=== PATIENT | male | born 2000 | race Two or more races ===

== ENCOUNTER 2025-08-29 14:06 | Inpatient (IN) ==
[2025-08-29] MEDS: ACETAMINOPHEN 500 MG TAB PO ONE (14:25)
[2025-08-29 15:07] LABS: Influenza A virus by PCR Negative (Neg); Influenza B virus by PCR Negative (Neg); SARS CoV2 RNA(COVID-19) Ceph NEGATIVE (Negative)
[2025-08-29] MEDS: ACETAMINOPHEN 500 MG TAB PO STA (15:08)
--- NOTE | 2025-08-29 15:34 | Emergency Department Note ---
History of Present Illness General Chief complaint: Fever Stated complaint: FEVER HEADACHE Time Seen by Provider: 08/29/25 14:16 Source: friends Mode of arrival: ambulatory Limitations: language barrier History of Present Illness Maximum Pain Intensity: 8 Patient is a 25-year-old male who presents today for 2 days of fever, chills, body aches, headache. Patient does have an automotive parts interpreter here with him at bedside. Symptoms started after he got back from [place]. No sick contacts on his trip. He is taking generic [id number] cold and flu medication. Last had a dose last night. Denies any neck stiffness, vision change, speech changes, confusion, chest pain, shortness of breath. He does report he is having some abdominal pain to the mid abdominal region. No nausea or vomiting. No change in bowel or bladder habits. No rash or tick bites. denies any other significant medical history. Home Medications Medication Instructions Recorded Confirmed Type acetaminophen 500 mg tablet 1,000 mg PO Q6H PRN Fever 08/29/25 08/29/25 History Past Med/Surg History Problem List (Updated 08/29/25 @ 18:35 by Harris Vera MD) Costovertebral (angle) tenderness, left side SIRS (systemic inflammatory response syndrome) Pyelonephritis (Acute) Social History Smoking Status: Never smoker Preferred Language: Upper Sorbian Feels Safe at Home: Yes Review of Systems Review of systems negative outside of positive findings mentioned in HPI. Physical Exam Vital Signs Vital Signs - 24 hr 08/29/25 14:10 08/29/25 15:35 08/29/25 17:19 Temperature 38 C H Temperature Source Oral Pulse Rate 123 H Pulse Rate [Right Finger] 106 H 91 H Respiratory Rate 16 17 17 Respiratory Effort / Characteristics Non-Labored Spontaneous Non-Labored Spontaneous Non-Labored Spontaneous Respiratory Depth Normal Normal Normal Respiratory Pattern Regular Regular Regular Blood Pressure 117/77 Blood Pressure [Left Arm] 102/66 110/64 Blood Pressure Mean 90 Blood Pressure Mean [Left Arm] 78 79 Pulse Oximetry 96 97 100 Oxygen Delivery Method Room Air Room Air Room Air Sepsis Recent Fever Within 48 Hours No Sepsis New/Unexplained Change in Mental Status N/A Sepsis Action Taken by Nursing No Action Required See below Constitutional WD/WN, vitals as above Eyes PERRL, conjunctivae normal, anicteric sclerae ENMT external ear and nose normal, oropharynx normal Neck no nuchal rigidity Respiratory normal respiratory effort, lungs clear to auscultation Cardiovascular Rate/Rhythm: + tachycardic Heart Sounds: normal S1 and normal S2 Gastrointestinal (Abdomen) normal bowel sounds, soft, nontender, no hepatosplenomegaly Musculoskeletal no cyanosis or clubbing, extremities motor strength 5/5 Skin no rashes, warm and dry Course Administered Medications Discontinued Medications Acetaminophen (Acetaminophen 500 Mg Tab) 1,000 mg PO ONCE ONE Stop: 08/29/25 14:16 Last Admin: 08/29/25 14:25 Dose: 1,000 mg Documented By: TOREY Acetaminophen (Acetaminophen 500 Mg Tab) 1,000 mg PO NOW STA Stop: 08/29/25 15:06 Last Admin: 08/29/25 15:08 Dose: Not Given Documented By: MELISA Sodium Chloride (Nss) 1,000 mls @ 999 mls/hr IV .Q1H1M ONE Stop: 08/29/25 16:13 Last Infusion: 08/29/25 16:54 Dose: Infused Documented By: Admin: 08/29/25 15:38 Dose: 999 mls/hr Documented By: MARK Ioversol (Optiray 320 125ml) 115 ml IV ONCE ONE Stop: 08/29/25 16:56 Last Admin: 08/29/25 16:55 Dose: 115 ml Documented By: GEOFF Ioversol (Optiray 320 100ml) 90 ml IV ONCE ONE Stop: 08/29/25 16:58 Last Admin: 08/29/25 16:58 Dose: 90 ml Documented By: GEOFF Ketorolac Tromethamine (Ketorolac Tromethamine 60 Mg/2 Ml Vial) 30 mg IM NOW STA Stop: 08/29/25 15:06 Last Admin: 08/29/25 15:41 Dose: Not Given Documented By: MARK Ketorolac Tromethamine (Ketorolac Tromethamine 15 Mg/Ml Vial) 15 mg IV NOW ONE Stop: 08/29/25 15:29 Last Admin: 08/29/25 15:38 Dose: 15 mg Documented By: MARK Medical Decision Making Differential Diagnosis DDx includes but not limited to: Viral syndrome, pneumonia, pyelonephritis, sepsis Medical Records Attestation: I reviewed the patient's medical records. Home Medications Current Medication List: was personally reviewed by me Laboratory Data Attestation: I reviewed the patient's lab results. 08/29/25 15:25 08/29/25 15:25 Lab Results 08/29/25 08/29/25 08/29/25 Range/Units 14:15 14:15 14:15 WBC (4.8-10.8) K/ul RBC (4.70-6.10) M/uL Hgb (14.0-18.0) g/dL Hct (42.0-52.0) % MCV (80.0-100.0) fL MCH (25.0-34.0) pg MCHC (32.0-36.0) g/dL RDW Std Deviation (36.4-46.3) fL RDW Coeff of Misa (11.5-14.5) % Plt Count (130-400) K/uL MPV (9.4-12.4) fL Immature Gran % (Auto) % Neut % (Auto) % Lymph % (Auto) % Alfalfa % (Auto) % Eos % (Auto) % Baso % (Auto) % Neut # (Auto) (1.40-6.50) K/uL Lymph # (Auto) (1.20-3.40) K/uL Alfalfa # (Auto) (0.11-0.59) K/uL Eos # (Auto) (0.00-0.50) K/uL Baso # (Auto) (0.00-0.20) K/uL Immature Gran # (Auto) (0.01-0.20) K/uL Sodium (136-145) mmol/L Potassium (3.5-5.1) mmol/L Chloride (98-107) mmol/L Carbon Dioxide (21-32) mmol/L Anion Gap (3-11) BUN (6-23) mg/dl Creatinine (0.6-1.4) mg/dl Est Cr Clr Drug Dosing ml/min eGFR BUN/Creatinine Ratio (10-20) Glucose (70-99(Fasting)) mg/dl Lactate (0.4-2.0) mmol/L Calcium (8.6-10.3) mg/dl Total Bilirubin (0.2-1.0) mg/dl AST (13-39) U/L ALT (7-52) U/L Alkaline Phosphatase (34-104) U/L Total Protein (6.0-8.3) gm/dl Albumin (3.4-5.0) gm/dl Globulin (2.5-4.0) gm/dl Albumin/Globulin Ratio (0.9-2) Lipase (11-82) U/L Adenovirus (PCR) Not Detected (NotDetected) B. pertussis DNA (PCR) Not Detected (NotDetected) B.parapertussis DNA PCR Not Detected (NotDetected) C. pneumoniae DNA (PCR) Not Detected (NotDetected) Coronavirus OC43 (PCR) Not Detected (NotDetected) Coronavirus HKU1 (PCR) Not Detected (NotDetected) Coronavirus 229E (PCR) Not Detected (NotDetected) SARS-CoV-2 (PCR) NEGATIVE Not Detected (Negative) Coronavirus NL63 (PCR) Not Detected (NotDetected) Human Metapneumovir PCR Not Detected (NotDetected) Influenza Type A (PCR) Negative Not Detected (Neg) Influenza Type B (PCR) Negative (Neg) M. pneumoniae (PCR) (NotDetected) Parainfluenza 1 (PCR) (NotDetected) Parainfluenza 2 (PCR) (NotDetected) Parainfluenza 3 (PCR) (NotDetected) Parainfluenza 4 (PCR) (NotDetected) RSV (RT-PCR) (Neg) RSV (PCR) (NotDetected) Entero/Rhino (PCR) (NotDetected) 08/29/25 08/29/25 08/29/25 Range/Units 14:15 15:25 18:22 WBC 16.39 H (4.8-10.8) K/ul RBC 5.53 (4.70-6.10) M/uL Hgb 14.0 (14.0-18.0) g/dL Hct 41.2 L (42.0-52.0) % MCV 74.5 L (80.0-100.0) fL MCH 25.3 (25.0-34.0) pg MCHC 34.0 (32.0-36.0) g/dL RDW Std Deviation 34.4 L (36.4-46.3) fL RDW Coeff of Misa 13.0 (11.5-14.5) % Plt Count 205 (130-400) K/uL MPV 9.7 (9.4-12.4) fL Immature Gran % (Auto) 0.4 % Neut % (Auto) 79.6 % Lymph % (Auto) 8.1 % Alfalfa % (Auto) 11.7 % Eos % (Auto) 0.1 % Baso % (Auto) 0.1 % Neut # (Auto) 13.07 H (1.40-6.50) K/uL Lymph # (Auto) 1.33 (1.20-3.40) K/uL Alfalfa # (Auto) 1.91 H (0.11-0.59) K/uL Eos # (Auto) 0.01 (0.00-0.50) K/uL Baso # (Auto) 0.01 (0.00-0.20) K/uL Immature Gran # (Auto) 0.06 (0.01-0.20) K/uL Sodium 130 L (136-145) mmol/L Potassium 4.1 (3.5-5.1) mmol/L Chloride 98 (98-107) mmol/L Carbon Dioxide 23 (21-32) mmol/L Anion Gap 9 (3-11) BUN 14 (6-23) mg/dl Creatinine 0.83 (0.6-1.4) mg/dl Est Cr Clr Drug Dosing 109.5 ml/min eGFR 124.56 BUN/Creatinine Ratio 16.9 (10-20) Glucose 112 H (70-99(Fasting)) mg/dl Lactate 0.8 (0.4-2.0) mmol/L Calcium 8.9 (8.6-10.3) mg/dl Total Bilirubin 1.2 H (0.2-1.0) mg/dl AST 15 (13-39) U/L ALT 19 (7-52) U/L Alkaline Phosphatase 59 (34-104) U/L Total Protein 7.4 (6.0-8.3) gm/dl Albumin 4.3 (3.4-5.0) gm/dl Globulin 3.1 (2.5-4.0) gm/dl Albumin/Globulin Ratio 1.4 (0.9-2) Lipase 8 L (11-82) U/L Adenovirus (PCR) (NotDetected) B. pertussis DNA (PCR) (NotDetected) B.parapertussis DNA PCR (NotDetected) C. pneumoniae DNA (PCR) (NotDetected) Coronavirus OC43 (PCR) (NotDetected) Coronavirus HKU1 (PCR) (NotDetected) Coronavirus 229E (PCR) (NotDetected) SARS-CoV-2 (PCR) (Negative) Coronavirus NL63 (PCR) (NotDetected) Human Metapneumovir PCR (NotDetected) Influenza Type A (PCR) (Neg) Influenza Type B (PCR) Not Detected (Neg) M. pneumoniae (PCR) Not Detected (NotDetected) Parainfluenza 1 (PCR) Not Detected (NotDetected) Parainfluenza 2 (PCR) Not Detected (NotDetected) Parainfluenza 3 (PCR) Not Detected (NotDetected) Parainfluenza 4 (PCR) Not Detected (NotDetected) RSV (RT-PCR) Negative (Neg) RSV (PCR) Not Detected (NotDetected) Entero/Rhino (PCR) Not Detected (NotDetected) Imaging Data Radiologist's Impression: Chest X-Ray 08/29/25 15:13 Chest radiograph, one view History: Fever Comparison: None Findings: Single AP view of the chest performed. No focal consolidation or pleural effusion. No pneumothorax. The cardiomediastinal silhouette is within normal limits. Normal pulmonary vascularity. No evidence for lymphadenopathy. No visualized bony or soft tissue abnormality. Impression: Normal chest radiograph Electronically signed by Johnny Esparza 08-29-2025 5:30 PM Abdomen/Pelvis CT 08/29/25 16:27 EXAMINATION: CT of the abdomen and pelvis performed after the administration of IV contrast TECHNIQUE: Helical CT images from the lung bases through the symphysis pubis were obtained with contrast. Coronal and sagittal reformatted images were generated at a workstation for further assessment. Dose reduction techniques were achieved by using automatic exposure control and/or adjustment of mA and/or kV according to patient size and/or use of iterative reconstruction technique. COMPARISON: None HISTORY: Abdominal pain FINDINGS: Lower chest: No consolidation. No pleural effusion or pneumothorax. Liver: No suspicious liver lesions. Portal veins appear patent. Gallbladder: No gallstones. No evidence of acute cholecystitis. Spleen: Normal size. Pancreas: No suspicious pancreatic lesions. The pancreatic duct is not dilated. Adrenal glands: No adrenal nodules. Kidneys: Wall thickening and mucosal hyperenhancement of the left ureter and renal collecting system. Striated left nephrogram. Left perinephric fat stranding. Right kidney appears within normal limits. Bladder / Pelvic organs: Mild diffuse wall thickening and mucosal hyperenhancement.. Bowel: No bowel obstruction. No abnormal bowel wall thickening. The appendix is unremarkable. Lymph nodes: No retroperitoneal, mesenteric, or pelvic lymphadenopathy. Peritoneum / Retroperitoneum: No free fluid or air within the abdomen. Vessels: No infrarenal aortic aneurysm. Bones and soft tissues: No suspicious lesion in the bones. Left fat-containing inguinal hernia. IMPRESSION: Findings of cystitis, as well as left ureteritis, and left pyelonephritis. No stones. Electronically signed by Johnny Esparza 08-29-2025 5:26 PM Blood Pressure Blood Pressure Findings: Normal blood pressure MDM Narrative Patient is a 25-year-old male who presents here today for fever, body aches and nonspecific abdominal pain. Febrile here on arrival at 38 Celsius. Tachycardic likely secondary to ongoing fever. Triage protocol orders were initiated including viral swabs and antipyretics. After my evaluation sepsis workup was initiated. Lab work shows a leukocytosis of 16,000. No evidence of endorgan damage or concern for severe sepsis or septic shock. Without a clear viral source to attribute his fever and leukocytosis to and the nonspecific abdominal pain I did order a CT scan. CT shows evidence of cystitis as well as left-sided ureteritis and pyelonephritis. IV ceftriaxone was ordered. Recommend admission due to persistent fever secondary to pyelonephritis as well as multiple social determinants of care. Impression & Plan Pyelonephritis Discharge Plan Visit Data Chief Complaint: Fever Stated Complaint: FEVER HEADACHE ED Provider: Harris Vera Discharge Problem: Pyelonephritis Patient Disposition: Admitted As Inpatient Condition: Good Forms Stand Alone Forms: My VisEn Medical Prescriptions Prescriptions: No Action acetaminophen 500 mg Tablet 1,000 mg PO Q6H PRN (Reason: Fever) Referrals Referrals: [facility] [Primary Care Provider] -
[2025-08-29] MEDS: KETOROLAC TROMETHAMINE 15 MG/ML VIAL IV ONE (15:38)
[2025-08-29] MEDS: SODIUM CHLORIDE 0.9% 1,000 ML IV ONE (15:38)
[2025-08-29 15:41] LABS: Hematocrit (blood only) 41.2 % (42.0-52.0); Hemoglobin 14.0 g/dL (14.0-18.0); Immature Granulocytes # (auto) 0.06 K/uL (0.01-0.20); Immature Granulocytes % (auto) 0.4 %; Mean Corpuscular Hemoglobin 25.3 pg (25.0-34.0); Mean Corpuscular Volume 74.5 fL (80.0-100.0); Platelet Count 205 K/uL (130-400); RDW Standard Deviation 34.4 fL (36.4-46.3); Red Blood Count 5.53 M/uL (4.70-6.10); White Blood Count 16.39 K/ul (4.8-10.8)
[2025-08-29] MEDS: KETOROLAC TROMETHAMINE 60 MG/2 ML VIAL IM STA (15:41)
[2025-08-29 15:57] LABS: Alanine Aminotransferase 19.0 U/L (7-52); Albumin Globulin Ratio 1.4 (0.9-2); Albumin Level 4.3 gm/dl (3.4-5.0); Alkaline Phosphatase 59.0 U/L (34-104); Anion Gap 9.0 (3-11); Bilirubin,Total 1.2 mg/dl (0.2-1.0); Blood Urea Nitrogen 14.0 mg/dl (6-23); Calcium 8.9 mg/dl (8.6-10.3); Carbon Dioxide 23.0 mmol/L (21-32); Chloride 98.0 mmol/L (98-107); Creatinine Clr Calc Pharmacy 109.5 ml/min; Globulin 3.1 gm/dl (2.5-4.0); Glucose 112.0 mg/dl (70-99(Fasting)); Lipase 8.0 U/L (11-82); Potassium 4.1 mmol/L (3.5-5.1); Sodium 130.0 mmol/L (136-145); Total Protein 7.4 gm/dl (6.0-8.3)
[2025-08-29 16:09] LABS: Chlamydia pneumoniae PCR Not Detected (NotDetected); Coronavirus 229E PCR Not Detected (NotDetected); Coronavirus CoV-2 (COVID19)PCR Not Detected (NotDetected); Coronavirus HKU1 PCR Not Detected (NotDetected); Coronavirus NL63 PCR Not Detected (NotDetected); Coronavirus OC43PCR Not Detected (NotDetected); Human Metapneumovirus PCR Not Detected (NotDetected); Parainfluenza Virus 1 PCR Not Detected (NotDetected); Parainfluenza Virus 2 PCR Not Detected (NotDetected); Parainfluenza Virus 3 PCR Not Detected (NotDetected); Parainfluenza Virus 4 PCR Not Detected (NotDetected); Respiratory Syncytial VirusPCR Not Detected (NotDetected); Rhinovirus/Enterovirus PCR Not Detected (NotDetected)
[2025-08-29] MEDS: OPTIRAY 320 125ml IV ONE (16:55)
[2025-08-29] MEDS: OPTIRAY 320 100ml IV ONE (16:58)
--- NOTE | 2025-08-29 17:26 | CT Scan Report ---
EXAMINATION: CT of the abdomen and pelvis performed after the administration of IV contrast TECHNIQUE: Helical CT images from the lung bases through the symphysis pubis were obtained with contrast. Coronal and sagittal reformatted images were generated at a workstation for further assessment. Dose reduction techniques were achieved by using automatic exposure control and/or adjustment of mA and/or kV according to patient size and/or use of iterative reconstruction technique. COMPARISON: None HISTORY: Abdominal pain FINDINGS: Lower chest: No consolidation. No pleural effusion or pneumothorax. Liver: No suspicious liver lesions. Portal veins appear patent. Gallbladder: No gallstones. No evidence of acute cholecystitis. Spleen: Normal size. Pancreas: No suspicious pancreatic lesions. The pancreatic duct is not dilated. Adrenal glands: No adrenal nodules. Kidneys: Wall thickening and mucosal hyperenhancement of the left ureter and renal collecting system. Striated left nephrogram. Left perinephric fat stranding. Right kidney appears within normal limits. Bladder / Pelvic organs: Mild diffuse wall thickening and mucosal hyperenhancement.. Bowel: No bowel obstruction. No abnormal bowel wall thickening. The appendix is unremarkable. Lymph nodes: No retroperitoneal, mesenteric, or pelvic lymphadenopathy. Peritoneum / Retroperitoneum: No free fluid or air within the abdomen. Vessels: No infrarenal aortic aneurysm. Bones and soft tissues: No suspicious lesion in the bones. Left fat-containing inguinal hernia. IMPRESSION: Findings of cystitis, as well as left ureteritis, and left pyelonephritis. No stones. Electronically signed by Johnny Esparza 08-29-2025 5:26 PM
--- NOTE | 2025-08-29 17:32 | XRay Report ---
Chest radiograph, one view History: Fever Comparison: None Findings: Single AP view of the chest performed. No focal consolidation or pleural effusion. No pneumothorax. The cardiomediastinal silhouette is within normal limits. Normal pulmonary vascularity. No evidence for lymphadenopathy. No visualized bony or soft tissue abnormality. Impression: Normal chest radiograph Electronically signed by Johnny Esparza 08-29-2025 5:30 PM
--- NOTE | 2025-08-29 18:18 | History & Physical Report ---
Date of Service August 29, 2025 Assessment & Plan (1) Pyelonephritis: (2) SIRS (systemic inflammatory response syndrome): (3) Costovertebral (angle) tenderness, left side: Cortney Cisneros is an pashto-speaking 25yo male with no pertinent medical history, came to the ED after 2 days of worsening L back and groin pain along with fever and myalgias, admitting for L pyelonephritis with SIRS. Admission required for IV fluids, IV antibiotics, frequent vital sign monitoring, and medical stabilization. #Pyelonephritis, Left #SIRS initially febrile to 38C, tachycardic to 120s, and leukocytosis to 16.4, neutrophil predominance CT abd/pelvis 08/29/25 showing L perinephric fat stranding, striated L nephrogram, and wall thickening w/ mucosal hyperenhancement of L ureter and collecting system; no stones seen Exam essentially only remarkable for L CVA tenderness along with above findings suggestive of bacterial ascending UTI Given 1g tylenol, 15mg toradol, and 1L NS bolus in ER; continue with mIVF at 125cc/hr Ordered UA with reflex to culture Ordered blood cultures Initiated ceftriaxone 2g IV q24 as most common causes of UTI and pyelonephritis are covered by 3rd gen cephalosporins; escalate vs maintain spectrum pending clinical direction, confirm with culture sensitivities; narrow as soon as able #hyponatremia likely to remain low in next day or two due to NS IVF - BMP AM, monitor for changes in mental status #elevated total bilirubin LFTs within normal limits; CT abd/pelvis without any suspicious liver findings - hepatic function panel to see unconjugated vs direct bili #microcytic ?anemia borderline anemic due to hgb 14, but possible iron deficiency - consider iron profile VTE ppx: Lovenox Diet: regular (halal) History of Present Illness Chief Complaint: L back pain Primary Care Provider: [facility] Blayne is an pashto-speaking 25yo male with no known medical history presenting for about 2 days of worsening fever, body aches, and general malaise after returning from [place]. Denies any other concerning symptoms including headache, neck pain, chest pain, abdominal pain, urinary pain / frequency / urgency nor blood observed. Denies constipation or diarrhea. Denies any sick contacts or sexual contacts, denies any suspicious or obviously contaminated food or water consumed. Has not sought out medical care with current illness until now. Does additionally note he's been having intermittent R or L groin pain for the past couple of years, but hasn't been getting any worse recently. Denies history of hernia or injury to groin/genital region. States he has never had UTI or kidney infection before, nor has he had kidney stones. ER course: NS 1L bolus, tylenol 1000mg IV, toradol 15mg IV Allergies Allergy/AdvReac Type Severity Reaction Status Date / Time No Known Allergies Allergy Unverified 08/29/25 18:50 Home Medications Medication Instructions Recorded Confirmed Type acetaminophen 500 mg tablet 1,000 mg PO Q6H PRN Fever 08/29/25 08/29/25 History Past Med/Surg History Problem List (Updated 08/29/25 @ 18:35 by Harris Vera MD) Costovertebral (angle) tenderness, left side SIRS (systemic inflammatory response syndrome) Pyelonephritis (Acute) Social History Smoking Status: Never smoker Second Hand Exposure: Yes; Hx Alcohol Use: No Hx Substance Use: No Preferred Language: Romansh Communication Ability: Effective Communication Tools: Sign Language and Other Financial Operations Clerk Required: Yes Beliefs That Will Affect Care: Rastafari Rastafari Beliefs: pt does not use products with alcohol or porcine derived items Current Living Situation: Other Current Living Situation Comment: roommates Other Information That Helps Us Care for You: No Feels Safe at Home: Yes Safety Concerns: Feels Safe At This Time Assistive Devices: None Review of Systems Review of Systems: All systems reviewed & are unremarkable except as noted in HPI & below Physical Exam Physical Exam: Gen: in no apparent distress, A&Ox3 CV: mildly tachycardic regular rhythm, no m/r/g Resp: clear to auscultation b/l, no w/r/R GI/Abd: normo-hyperactive BS, abdomen nontense, nondistended, no organomegaly, nontender to palpation, no guarding MSK: L CVA tenderness to percussion, no R CVA tenderness to percussion; no neck pain, full cervical spine ROM without pain Neuro: no facial droop, speech intact, no focal deficits Results & Data Results & Data Vital Signs (Past 12 Hours) Vital Signs Temp Pulse Pulse Resp BP BP Pulse Ox 08/29/25 17:19 91 H 17 110/64 100 08/29/25 15:35 106 H 17 102/66 97 08/29/25 14:10 38 C H 123 H 16 117/77 96 O2 Del Method 08/29/25 17:19 Room Air 08/29/25 15:35 Room Air 08/29/25 14:10 Room Air Supervising Physician Co-Signing Physician Notes During face to face encounter, I obtained a history and physical examination, discussed plan of care with patient and answered any questions. I discussed plan of care with Dr. Kennedy. I reviewed above note and agree with it except for the following: Patient will be admitted with a complicated UTI. Patient will be placed on rocephin as FQ are pretty resistant in this area. will await cultures. Resident Activity Tracking Resident Involvement: Resident Care Provided Care Provided: Adult Hospital Medicine
[2025-08-29] MEDS: cefTRIAXone SODIUM 2,000 MG/50 ML BAG IV STA (19:05)
[2025-08-29 19:11] LABS: Appearance Urine Cloudy (Clear); Bacteria Urine Automated 4+ (None Seen); Cast Urine Automated 0-2 /lpf (0-2); Epithelial Cell Urine Auto 0-2 /hpf (0-2); Glucose Urine UA Negative (Negative); RBC Urine Automated 0-2 /hpf (0-2); WBC Urine Automated >50 /hpf (0-5)
[2025-08-29] MEDS: SODIUM CHLORIDE 0.9% 1,000 ML IV SCH (19:33)
[2025-08-29] MEDS: ENOXAPARIN INJ 40 MG/0.4 ML SYR SQ SCH (19:33)
[2025-08-29] MEDS ORDERED: ONDANSETRON INJ 2 MG/ML 2 ML VIAL IV PRN (21:04)
[2025-08-30] MEDS: ACETAMINOPHEN 325 MG TAB PO PRN (00:30)
[2025-08-30] MEDS ORDERED: INFLUENZA VACC TS2025-26(6m+)/PF (IIV3) 0.5mL Syr IM ONE (09:00)
[2025-08-30 10:13] LABS: Hematocrit (blood only) 32.6 % (42.0-52.0); Hemoglobin 11.5 g/dL (14.0-18.0); Mean Corpuscular Hemoglobin 26.7 pg (25.0-34.0); Mean Corpuscular Volume 75.8 fL (80.0-100.0); Platelet Count 167 K/uL (130-400); RDW Standard Deviation 35.1 fL (36.4-46.3); Red Blood Count 4.30 M/uL (4.70-6.10); White Blood Count 9.44 K/ul (4.8-10.8)
[2025-08-30 10:28] LABS: Alanine Aminotransferase 25.0 U/L (7-52); Albumin Level 3.4 gm/dl (3.4-5.0); Alkaline Phosphatase 53.0 U/L (34-104); Anion Gap 5.0 (3-11); Bilirubin,Total 0.7 mg/dl (0.2-1.0); Blood Urea Nitrogen 11.0 mg/dl (6-23); Calcium 7.8 mg/dl (8.6-10.3); Carbon Dioxide 23.0 mmol/L (21-32); Chloride 107.0 mmol/L (98-107); Creatinine Clr Calc Pharmacy 124.5 ml/min; Glucose 126.0 mg/dl (70-99(Fasting)); Potassium 3.8 mmol/L (3.5-5.1); Sodium 135.0 mmol/L (136-145); Total Protein 6.0 gm/dl (6.0-8.3)
[2025-08-30] MEDS: cefTRIAXone SODIUM 2,000 MG/50 ML BAG IV SCH (17:48)
--- NOTE | 2025-08-30 23:35 | Hospitalist Progress Note ---
Date of Service August 30, 2025 Assessment & Plan (1) Pyelonephritis: (2) SIRS (systemic inflammatory response syndrome): (3) Costovertebral (angle) tenderness, left side: Cortney Cisneros is an turkish-speaking 25yo male with no pertinent medical history, came to the ED after 2 days of worsening L back and groin pain along with fever and myalgias, admitting for L pyelonephritis with SIRS. Admission required for IV fluids, IV antibiotics, frequent vital sign monitoring, and medical sta bilization. #Pyelonephritis, Left #SIRS initially febrile to 38C, tachycardic to 120s, and leukocytosis to 16.4, neutrophil predominance CT abd/pelvis 08/29/25 showing L perinephric fat stranding, striated L nephrogram, and wall thickening w/ mucosal hyperenhancement of L ureter and collecting system; no stones seen Exam essentially only remarkable for L CVA tenderness along with above findings suggestive of bacterial ascending UTI Given 1g tylenol, 15mg toradol, and 1L NS bolus in ER; continue with mIVF at 125cc/hr Ordered UA with reflex to culture Ordered blood cultures Initiated ceftriaxone 2g IV q24 as most common causes of UTI and pyelonephritis are covered by 3rd gen cephalosporins; escalate vs maintain spectrum pending clinical direction, confirm with culture sensitivities; narrow as soon as able Awaiting cultures, ordered a bladder scan after the patient urinated. This was negative. No need for fagan catheter. #hyponatremia likely to remain low in next day or two due to NS IVF -improved. #elevated total bilirubin LFTs within normal limits; CT abd/pelvis without any suspicious liver findings - hepatic function panel to see unconjugated vs direct bili #microcytic ?anemia borderline anemic due to hgb 14, but possible iron deficiency - consider iron profile VTE ppx: Lovenox Diet: regular (halal) Admission and Anticipated Discharge Date Admission Date: August 29, 2025 Subjective 25 yo male reports no new symptoms. He continues to have some back pain. He reports he is concerned that he sometimes has difficulty emptying his bladder but reports this is a chronic issue. 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 Physical Exam Physical Exam: Gen: in no apparent distress, A&Ox3 CV: mildly tachycardic regular rhythm, no m/r/g Resp: clear to auscultation b/l, no w/r/R GI/Abd: normo-hyperactive BS, abdomen nontense, nondistended, no organomegaly, nontender to palpation, no guarding MSK: continues to have L CVA tenderness to percussion, no R CVA tenderness to percussion; no neck pain, full cervical spine ROM without pain Neuro: no facial droop, speech intact, no focal deficits Results & Data Results & Data Vital Signs (Past 12 Hours) Vital Signs Temp Pulse Resp BP Pulse Ox O2 Del Method 08/30/25 14:27 36.9 C 98 H 16 112/72 97 Room Air PG Care Time/CCT Total # of Minutes Spent Total Time Spent with Patient: Total time spent is greater than 50% in coordination of care (as documented) at patient's floor/unit and/or counseling patient: Coding Level of Care Code 15004 SUB INP/OBS CARE 3/50MIN Diagnoses Pyelonephritis N12 SIRS (systemic inflammatory response syndrome) R65.10 Costovertebral (angle) tenderness, left side R39.852
[2025-08-31 00:07] VITALS: RESP 18; O2SAT 99
[2025-08-31 07:20] LABS: Hematocrit (blood only) 34.5 % (42.0-52.0); Hemoglobin 12.2 g/dL (14.0-18.0); Mean Corpuscular Hemoglobin 26.6 pg (25.0-34.0); Mean Corpuscular Volume 75.2 fL (80.0-100.0); Platelet Count 178 K/uL (130-400); RDW Standard Deviation 34.5 fL (36.4-46.3); Red Blood Count 4.59 M/uL (4.70-6.10); White Blood Count 9.21 K/ul (4.8-10.8)
[2025-08-31 07:59] VITALS: BP 112/70; PULSE 52; TEMP 98.1
[2025-08-31 08:04] LABS: Anion Gap 9.0 (3-11); Blood Urea Nitrogen 5.0 mg/dl (6-23); Calcium 8.2 mg/dl (8.6-10.3); Carbon Dioxide 22.0 mmol/L (21-32); Chloride 104.0 mmol/L (98-107); Creatinine Clr Calc Pharmacy 151.4 ml/min; Glucose 81.0 mg/dl (70-99(Fasting)); Potassium 3.7 mmol/L (3.5-5.1); Sodium 135.0 mmol/L (136-145)
--- NOTE | 2025-08-31 10:35 | Billing Data ---
Date of Service August 29, 2025 Coding Level of Care Code 00760 INT INP/OBS CARE
--- NOTE | 2025-08-31 12:53 | Discharge Summary ---
Discharge Summary Date of Service August 31, 2025 Principal Dx & Hospital Course #1 = Principal Diagnosis (1) Pyelonephritis: (2) SIRS (systemic inflammatory response syndrome): (3) Costovertebral (angle) tenderness, left side: Cortney Cisneros is an bengali-speaking 25yo male with no pertinent medical history, came to the ED after 2 days of worsening L back and groin pain along with fever and myalgias, admitting for L pyelonephritis with SIRS. Admission required for IV fluids, IV antibiotics, frequent vital sign monitoring, and medical stabilization. #Pyelonephritis, Left #SIRS initially febrile to 38C, tachycardic to 120s, and leukocytosis to 16.4, neutrophil predominance CT abd/pelvis 08/29/25 showing L perinephric fat stranding, striated L nephrogram, and wall thickening w/ mucosal hyperenhancement of L ureter and collecting system; no stones seen Exam essentially only remarkable for L CVA tenderness along with above findings suggestive of bacterial ascending UTI Given 1g tylenol, 15mg toradol, and 1L NS bolus in ER; continue with mIVF at 125cc/hr Ordered UA with reflex to culture Ordered blood cultures Initiated ceftriaxone 2g IV q24 as most common causes of UTI and pyelonephritis are covered by 3rd gen cephalosporins; escalate vs maintain spectrum pending clinical direction, confirm with culture sensitivities; narrow as soon as able Awaiting cultures, ordered a bladder scan after the patient urinated. This was negative. No need for fagan catheter. #hyponatremia likely to remain low in next day or two due to NS IVF -improved. #elevated total bilirubin LFTs within normal limits; CT abd/pelvis without any suspicious liver findings - hepatic function panel to see unconjugated vs direct bili #microcytic ?anemia borderline anemic due to hgb 14, but possible iron deficiency - consider iron profile VTE ppx: Lovenox Diet: regular (halal) Admission HPI Per Admitting Provider Blayne is an bengali-speaking 25yo male with no known medical history presenting for about 2 days of worsening fever, body aches, and general malaise after returning from [place]. Denies any other concerning symptoms including headache, neck pain, chest pain, abdominal pain, urinary pain / frequency / urgency nor blood observed. Denies constipation or diarrhea. Denies any sick contacts or sexual contacts, denies any suspicious or obviously contaminated food or water consumed. Has not sought out medical care with current illness until now. Does additionally note he's been having intermittent R or L groin pain for the past couple of years, but hasn't been getting any worse recently. Denies history of hernia or injury to groin/genital region. States he has never had UTI or kidney infection before, nor has he had kidney stones. ER course: NS 1L bolus, tylenol 1000mg IV, toradol 15mg IV Discharge Plan Discharge Items Reason For Visit: UTI Discharge Diagnosis: UTI Condition on Discharge: Good Activity: Resume your previous activity Non-emergency contact: Primary Care Provider Call non-emergency contact if: you have any medication questions Follow-up/Referrals: [place],[facility] [Primary Care Provider] - Diet: Regular Addtl Attending Provider Instructions: nayana' brianyrtimi berkowitz 'iiblaghakum 'edgard halatukum alsihiyat qad tahasanat bima yakfi lilkhuruj min almustashfaa. bower tueanu min 'ayi himana li'akthar min 36 saeatin, wa'azharat natayij tahlil mazraeat albawl wujud baktirya al'iishrikiat alq awlunia (E. coli), wahi baktirya shayieat jdan tusbb ailtihabat almasalik albuliati. satabda bitanawul almadadi alhayawii allaylat fi tamam alsaaeat alsaadisat 'aw alsaabieat msa'an. tanawulih susanne 12 saeatin. aistamara ealaa hadha alminwal limudat khamsat 'ayaamin. yurja dabt munabih ealaa hatifik li'edgard tafwit 'ayi jureat qad yuqll min faeaaliat alealaji. yajib 'an yakun hadha alemundo bowden 'iidha airtafaeat darajat hararatik 'aw zad al'almi, yurja aleawdat 'iilaa aleiadat 'aw altawajuh 'iilaa qism altawarii. laqad ira min dawaei lexiuri. 'atamanaa lak alshifa' aleajila. atanorth bendan yakun hadha alkalam [facility], jeanineqad albertbenjalaura juan miguel zuñiga. Pending Studies at Discharge: No Stand-Alone Forms: My [facility], Work/School Release, Smoking Cessation Medications and DC Order Prescriptions: New sulfamethoxazole-trimethoprim [Bactrim DS] 800-160 mg tablet 1 tab PO BID Qty: 10 0RF Rx Instructions: First dose tonight aljureat al'uwlaa allaylata. Continued acetaminophen 500 mg Tablet 1,000 mg PO Q6H PRN (Reason: Fever) Admission Data Admit Date/Time: 08/29/25 18:15 Attending Provider: Suraj Cobos Admit Provider: Suraj Cobos Primary Care Provider: [place],[facility] Other Interventions: Discharge Summary Assessment (RN) Last Done: 08/31/25 12:41 Hospital Stay Data Diagnostic Imagining Performed 08/29/25 16:27 CT abd pelvis IV con only Stat Pending Results Patient Have Any Pending Studies at Discharge: No Discharge Instructions Given to Patient (Per Discharging Provider) timi aiken 'iiblaghakum 'edgard halatukum alsihiyat qad tahasanat bima yakfi abikhyokoj min almustashfaa. bower tueanu min 'ayi himana li'akthar min 36 saeatin, wa'azharat natayij tahlil mazraeat albawl wujud baktirya al'iishrikiat alqawlunia (E. coli), wahi baktirya shayieat jdan tusbb ailtihabat almasalik albuliati. satabda bitanawul almadadi alhayawii allaylat tamam alsaaeat alsaadisat 'aw alsaabieat msa'an. tanawulih susanne 12 saeatin. aistamara ealaa hadha alminwal limudat khamsat 'ayaamin. yurja dabt munabih ealaa hatifik li'edgard tafwit 'ayi jureat qad yuqll min faeaaliat alealaji. yajib 'an yakun hadha alemundo bowden 'iidha airtafaeat darajat hararatik 'aw zad al'almi, yurja aleawdat 'iilaa aleiadat 'aw altawajuh 'iilaa qism altawarii. laqad ira min dawaei sururi. 'atamanaa lak alshi' aleajila. atamanaa 'an yakun hadha alkalam mfwmaan, faqad astakhdimat [facility]. Coding Diagnoses Pyelonephritis N12 SIRS (systemic inflammatory response syndrome) R65.10 Costovertebral (angle) tenderness, left side R39.852
== END 2025-08-31 14:29 | disposition home or self-care (01) | DRG 690 ==
LOC: ED 14:06 → 3W 18:15 → SUATTDRO 18:15 → 3W 20:06